=== PATIENT | female | born 1995 | race Two or more races ===

== ENCOUNTER 2017-07-13 16:34 | Inpatient (IN) | payer OTHER ==
[~2017-07-13] VITALS: Ht 154.9 cm; Wt 54.5 kg
[2017-07-13 17:27] LABS: CONTROL LINE HCG INT CTR LINE PRESENT
[2017-07-13 17:42] LABS: ALBUMIN 4.5 GM/DL (3.2-5.2); ALBUMIN/GLOBULIN RATIO 1.41 (1.00-1.93); ALKALINE PHOSPHATASE 68 U/L (45-117); ALT/SGPT 32 U/L (12-78); ANION GAP 10 MEQ/L (8-16); AST/SGOT 19 U/L (15-37); BILIRUBIN,DIRECT 0.2 MG/DL (0.0-0.2); BLOOD UREA NITROGEN 11 MG/DL (7-18); CALCIUM LEVEL 9.8 MG/DL (8.5-10.1); CARBON DIOXIDE LEVEL 26 MEQ/L (21-32); CHLORIDE LEVEL 106 MEQ/L (98-107); CREATININE FOR GFR 0.79 MG/DL (0.55-1.02); GLUCOSE, FASTING 87 MG/DL (70-105); POTASSIUM SERUM 4.6 MEQ/L (3.5-5.1); SODIUM LEVEL 142 MEQ/L (136-145); TOTAL PROTEIN 7.7 GM/DL (6.4-8.2)
[2017-07-13 17:45] LABS: METHADONE URINE NEGATIVE (NEGATIVE)
[2017-07-13 17:54] LABS: MEAN CORPUSCULAR HGB CONC 34.8 g/dl (32.0-36.5); MEAN CORPUSCULAR VOLUME 89.1 fl (80.0-96.0); RED CELL DISTRIBUTION WIDTH 12.2 % (11.5-14.5); WHITE BLOOD COUNT 7.3 K/mm3 (4.0-10.0)
[2017-07-13] MEDS ORDERED: traZODone 50 MG TAB PO PRN (19:00)
[2017-07-13] MEDS ORDERED: ACETAMINOPHEN TAB 650MG DOSE (2X325MG) PO PRN (19:00)
[2017-07-13] MEDS ORDERED: MOM 30ML SUSPENSION UDC PO PRN (19:00)
[2017-07-13] MEDS ORDERED: MAALOX 30 ML SUSP *UDC PO PRN (19:00)
[2017-07-13] MEDS ORDERED: FLUO10CA8 PO (19:37)
[2017-07-13] MEDS ORDERED: MINO50CA3 PO (19:37)
[2017-07-13] MEDS ORDERED: HYDR-643 PO (19:37)
[2017-07-14 06:47] VITALS: BP 105/62
[2017-07-14] MEDS ORDERED: hydrOXYzine 10 MG TAB PO SCH (09:00)
[2017-07-14] MEDS ORDERED: MINOCYCLINE 50 MG CAP PO SCH (09:00)
--- NOTE | 2017-07-14 09:21 | HPEPDOC ---
Medical History and Physical Date of Admission Jul 14, 2017 History and Physical PCP: Dr Holbrook ATTENDING: Dr. Ramón Garner HPI: 22yoF admitted to [facility] for unspecified depressive disorder, being medically examined today. Patient states she has been having some diarrhea over the past few days. She denies abdominal pain currently but states she had some a few days ago. Patient denies nausea, vomiting. Denies history of fevers or chills. Oral intake has been less than usual. Denies any fevers, chills, weakness, fatigue, GARDNER, CP, SOB, cough, palpitations, or changes in bladder habits. PMHx: Anxiety Depression History of self-mutilation Acne PSHX: Denies SOCHX: [facility]ides in: [facility] Marital Status: Single Kids: None Employment: Student Tobacco use: Quit 2 months ago ETOH: Denies Illicit Drugs: Denies IV Drug Use: Denies Tattoos done unprofessionally: Denies FAMHX: Mother: Alive, well Father: Alive, well Siblings: One brother Alive, well Children: None Unexpected deaths due to medical reasons: None. ROS: As noted in HPI, otherwise 11pt ROS of systems reviewed and remarkable only for LMP 07/12/17. PE: GEN: 22 yo F, appears stated age. Well-nourished, well developed. No acute distress. Alert and oriented x 3. Pleasant, interactive. HEENT: Normocephalic, atraumatic. Pupils are equal, round, and reactive to light. Extraocular movements are intact. No nystagmus appreciated. Sclera are nonicteric. Conjunctiva without injection. Nose midline. Nasal turbinates without bogginess. EACs both patent BL. TMs both visualized and browning with good cone of light, no bulging or erythema. No facial asymmetry. Moist mucous membranes. Dentition fair. Pharynx pink and moist, no cobblestoning. Neck supple , trachea midline. No lymphadenopathy or thyromegaly appreciated. CHEST: Regular rate and rhythm, +S1, +S2 LUNGS: Clear to auscultation bilaterally. No wheezes, rales, or rhonchi. Breathing appears symmetric and easy. Patient is speaking in full sentences. No accessory muscle use. ABD: Round, soft, non-tender, non-distended. +Bowel sounds throughout. No rebound or guarding. No costovertebral angle tenderness. EXT: Pulses 2+ bilaterally dorsalis pedis and radial. No lower extremity edema appreciated. SKIN: [place], dry, warm. Capillary refill <2sec. No rashes. Healed scars are noted on the bilateral forearms. NEURO: Alert and oriented x 3. Cranial nerves III-XII are intact. No focal deficits appreciated. EKG: Pending A&P: 22yoF admitted to [facility] for unspecified depressive disorder, 1. Psych. Plan per Psychiatry. Obtain baseline EKG to assure the safety of psychiatric medications as they can prolong the QT interval. 2. Loose stools. Patient currently denies any abdominal pain. Will request UA/ UC. Will request GI panel with recurrent symptoms. Encourage oral intake. Patient is afebrile. CBC/CMP unremarkable. 3. Follow up with PCP on discharge. 4. Staff member Jeanne present throughout exam. Vital Signs Vital Signs Date Time Temp Pulse Resp B/P (MAP) Pulse Ox O2 Delivery O2 Flow Rate FiO2 07/14/17 06:47 97.8 68 18 105/62 (76) Room Air 07/13/17 20:22 100 Laboratory Data Labs 24H Laboratory Tests 2 07/13/17 16:49: Anion Gap 10, Calcium Level 9.8, Aspartate Amino Transf (AST/SGOT) 19, Alanine Aminotransferase (ALT/SGPT) 32, Alkaline Phosphatase 68, Total Bilirubin 1.0, Direct Bilirubin 0.2, Total Protein 7.7, Albumin 4.5, Albumin/Globulin Ratio 1.41, Thyroid Stimulating Hormone (TSH) 0.864, Human Chorionic Gonadotropin, Qual NEGATIVE, Salicylates Level < 1.7L, Urine Amphetamines Screen NEGATIVE, Urine Benzodiazepines Screen NEGATIVE, Urine Opiates Screen NEGATIVE, Urine Methadone Screen NEGATIVE, Acetaminophen Level < 2.0L, Urine Barbiturates Screen NEGATIVE, Urine Phencyclidine Screen NEGATIVE, Urine Cocaine Metabolite Screen NEGATIVE, Urine Cannabinoids Screen NEGATIVE, Ethyl Alcohol Level 0.003 CBC/BMP Laboratory Tests 07/13/17 16:49 Red Blood Count 4.95, Mean Corpuscular Volume 89.1, Mean Corpuscular Hemoglobin 31.0, Mean Corpuscular Hemoglobin Concent 34.8, Red Cell Distribution Width 12.2 Home Medications Scheduled Fluoxetine Hcl (Fluoxetine) 10 Mg Cap, 10 MG PO QHS Hydroxyzine HCl (Hydroxyzine HCl) 10 Mg Tab, 10 MG PO TID Minocycline HCl (Minocycline HCl) 50 Mg Cap, 50 MG PO DAILY Allergies Coded Allergies: Penicillins (Verified Allergy, Intermediate, 07/13/17) Shima Rodriguez Jul 14, 2017 09:21
--- NOTE | 2017-07-14 16:45 | MHDSPDOC ---
[facility] Discharge Summary Discharge Summary DATE OF ADMISSION: Jul 13, 2017 at 18:55 DATE OF DISCHARGE: Jul 14, 2017 at 14:45 DISCHARGE DIAGNOSES: 1. Generalized anxiety disorder REASON FOR ADMISSION: pt began having thoughts of self harm after initiation of fluoxetine for anxiety. given the black box warning for people her age the medication is stopped. She had scratched her nect with a pencil deliberately in response to these thoughts. CONSULTANTS INVOLVED:na TREATMENT AND PROGRESS ON THE UNIT : pt was evaluated for depression. She denies guilt, hopelessness and difficulty sleeping. Even though she sleeps only 4-6 hours she feels rested. She reports good energy but not excess energy. She has things that interest her but is not as involved with Art as she once was. this is not due to lack of interest but mainly due to lack of time. She does use art for relaxation, drawing. She has quit smoking as of 2 months ago and this is a significant change and health benefit. Pt reports purposeful weight loss due to going to the gym regularly and exercising. Her father relies on her for assistance with things around the house that require strength for lifting. No psychomotor changes observed. Pt reports concentration is "fifty-fifty" due to anxiety. She did not meet criteria for depression. Pt was assessed for Anxiety which she endorses fully. She has high expectations of herself and works very hard at school She attends [employer] and has completed 3 semesters. She carries 14 credits. 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 She often has to walk out of class and deep breathe to relax and calm herself then she can return to class. She states her anxiety is so intense she loses focus. this has been happening for a "couple years". There is no apparent trigger. Her heart rate increases, her chest feels tight. If she is having a panic attack she will have these symptoms along with SOB. She struggles with her math requirement and has taken it over now for the third time. She is getting tutoring. She reports if her dad calls her away to help with something she gets irritated as she does not want to be interrupted when studying or doing school work. She will go to the library or stay later at school to get work done so she is not interrupted. Pt states testing on-line is easier for her than in the classroom. She reports "freezing up" when test taking in class and cannot remember things. We discussed requesting a small amount of medicaiton from her doctor for test times. Something like Xanax 0.5 mg or Ativan 0.5 mg may help her test more successfully. Pt lives in [place] with her parents. She says her mother is always busy. She has one older brother who does not have anxiety. She reports her mother does have anxiety but not as bad as her's. Pt sees a school counselor Chanel and receives hydroxyzine prn from her PCP Dr. Holbrook. HOSPITAL COURSE: It was decided that pt did not need to remain on the unit. It appears she was having a rare but not uncommon event related to SSRI for her age group. Stopping the medication is the best decision. Since she does not endorse depressive symptoms it is not felt that she would benefit from an SSRI. We discussed other options to hydroxyzine like BuSpar, clonidine, propranolol but decided since she gets relief from the hydroxyzine and uses it 2-3 times a day as needed without any side effects she should continue on this. BuSpar will take several week to reach a therapeutic level and with her exercising she may tolerate an antihistamine better than an antihypertensive. DISCHARGE ASSESSMENT: Pt can verbalize things she does for stress reduction such as exercising, going for a walk, keeping busy. She has friends and people she feels are supportive of her like her therapist. Pt does not have any serious medical issues. She takes BCP for acne. She does not present with psychotic symptoms. Her mood is not expansive and she does not present as haivng anxiety problems or concentration problems due to bipolar disorder. No family history of this [place]. No family h/o suicide. No thought disorder observed when pt evaluated. Pt states scars on forearms are from her pet dogs and scratches. She denies self inflicted harm. the scratches do appear consist with what small animals can do. She only has one scratch on her neck that she put there yesterday. She does not have a psychiatric history and has never been hospitalized for psychiatric reasons. She has never seen a psychiatrist and gets her hydroxyzine from her PCP. MENTAL STATUS EXAMINATION ON DISCHARGE: Patient is a 22 year old female, who is petite, medium skin, dark hair with green tint, glasses, good eye contact, wearing hospital pj's. Cooperative and Pleasant. Speech is spontaneous, clear. Language skills are intact, good. Thought processes including: goal directed. Thought content: appropriate. Abstract reasoning, and computation: good. Description of associations: good. Description of abnormal or psychotic thoughts: none. she was not suicidal prior to admission, denies ever having suicidal thoughts, no psychotic symptoms illicited. Judgment: good. Insight: good. Orientation to person, place, situation and time are all good. Recent and remote memory: intact. Attention span and concentration: good. Fund of knowledge: Full. Mood: euthymic Affect: anxious MEDICATIONS ON DISCHARGE: pt has hydroxyzine at home per PCP. No script needed at discharge. PLAN/FOLLOWUP ARRANGEMENTS: Pt will follow up with PCP and school counselor. Pt is not suicidal or homicidal. She has anxiety and has good understanding that business and distraction are good things to be aware of in controlling anxiety. She also uses meditation several times a day as needed and deep breathing. She will be discharged as she is not DTS or DTO and she wants to go home. She denies any interpersonal conflicts with parents or friends that are causing her anxiety. Pt has her car at [facility] and will need a cab from [facility] to there. The amount of time spent in the coordination of care for this patient was approximately 45 minutes. Vital Signs/I&Os Vital Signs Date Time Temp Pulse Resp B/P (MAP) Pulse Ox O2 Delivery O2 Flow Rate FiO2 07/14/17 06:47 97.8 68 18 105/62 (76) Room Air 07/13/17 20:22 100 Laboratory Data Labs 24H Laboratory Tests 2 07/13/17 16:49: Anion Gap 10, Calcium Level 9.8, Aspartate Amino Transf (AST/SGOT) 19, Alanine Aminotransferase (ALT/SGPT) 32, Alkaline Phosphatase 68, Total Bilirubin 1.0, Direct Bilirubin 0.2, Total Protein 7.7, Albumin 4.5, Albumin/Globulin Ratio 1.41, Thyroid Stimulating Hormone (TSH) 0.864, Human Chorionic Gonadotropin, Qual NEGATIVE, Salicylates Level < 1.7L, Urine Amphetamines Screen NEGATIVE, Urine Benzodiazepines Screen NEGATIVE, Urine Opiates Screen NEGATIVE, Urine Methadone Screen NEGATIVE, Acetaminophen Level < 2.0L, Urine Barbiturates Screen NEGATIVE, Urine Phencyclidine Screen NEGATIVE, Urine Cocaine Metabolite Screen NEGATIVE, Urine Cannabinoids Screen NEGATIVE, Ethyl Alcohol Level 0.003 CBC/BMP Laboratory Tests 07/13/17 16:49 Red Blood Count 4.95, Mean Corpuscular Volume 89.1, Mean Corpuscular Hemoglobin 31.0, Mean Corpuscular Hemoglobin Concent 34.8, Red Cell Distribution Width 12.2 Medications Scheduled Hydroxyzine HCl (Hydroxyzine HCl) 10 Mg Tab, 10 MG PO TID, (Reported) Minocycline HCl (Minocycline HCl) 50 Mg Cap, 50 MG PO DAILY, (Reported) Allergies Coded Allergies: Penicillins (Verified Allergy, Intermediate, 07/13/17) Mya Pierce Jul 14, 2017 16:45
--- NOTE | 2017-07-14 19:01 | ECGEPIP ---
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
[2017-07-14] MEDS ORDERED: FLUoxetine 10 MG CAP PO SCH (21:00)
== END 2017-07-14 14:45 | disposition home or self-care (01) | DRG 880 ==
LOC: M ED 16:34 → M ED INP 18:55 → M PSY 20:32
PROVIDERS: ADMIT Psychiatry & Neurology Psychiatry; ATTEND Psychiatry & Neurology Child & Adolescent Psychiatry
DX: F41.1 Generalized anxiety disorder (principal); R45.851 Suicidal ideations; Z79.899 Other long term (current) drug therapy; Z88.0 Allergy status to penicillin; Z91.5 Personal history of self-harm; Z87.891 Personal history of nicotine dependence; R19.7 Diarrhea, unspecified

== ENCOUNTER → 2017-11-29 | Outpatient (CLI) | payer OTHER | LOC: M LRY 19:38 | DX: M25.522 Pain in left elbow (principal) | CPT/HCPCS: 73060 ==

== ENCOUNTER 2021-05-09 20:49 | Emergency (ER) | payer OTHER, SELFPAY ==
[~2021-05-09] VITALS: Ht 154.9 cm; Wt 70.7 kg
[~2021-05-09 20:49] MED LIST: FLUO10CA16 PO; HYDR-643 PO; MINO50CA3 PO
[2021-05-09] MEDS ORDERED: HYDR-3363 (21:01)
[2021-05-09] MEDS ORDERED: BUSP10TA (21:01)
[2021-05-09] MEDS ORDERED: PARO30TA4 (21:01)
--- NOTE | 2021-05-09 22:21 | REPVR ---
PROCEDURE INFORMATION: Exam: XR Right Elbow Exam date and time: 05/09/2021 9:02 PM Age: 26 years old Clinical indication: Other: Fall injury TECHNIQUE: Imaging protocol: XR Right elbow. Views: 3 or more views. COMPARISON: CR HUMERUS 2017-11-29 19:43 FINDINGS: Bones/joints: Mild degenerative joint disease. Soft tissues: Normal. IMPRESSION: No acute findings. Electronically signed by: Ramón Tong On 05/09/2021 22:21:01 PM
[2021-05-10 00:23] VITALS: BP 128/74
== END 2021-05-10 00:26 | disposition home or self-care (01) ==
LOC: M ED 20:49
DX: S50.01XA Contusion of right elbow, initial encounter (principal); W22.8XXA Striking against or struck by other objects, initial encounter; Y92.89 Other specified places as the place of occurrence of the external cause; Y93.9 Activity, unspecified; Y99.0 Civilian activity done for income or pay; F32.9 Major depressive disorder, single episode, unspecified; F41.9 Anxiety disorder, unspecified; Z88.0 Allergy status to penicillin

== ENCOUNTER → 2021-09-01 | Outpatient (REF) ==
[~2021-09-01] MED LIST changes: +BUSP10TA; +HYDR-3363; +PARO30TA4
== END ==
LOC: M EMP 08:13
PROVIDERS: ATTEND Family Medicine
DX: Z20.822 Contact with and (suspected) exposure to COVID-19 (principal)

== ENCOUNTER 2021-11-10 22:21 | Emergency (ER) | payer OTHER ==
[~2021-11-10 22:21] MED LIST changes: -FLUO10CA16 PO; +FLUO10CA18 PO
[2021-11-11] MEDS ORDERED: ACETAMINOPHEN TAB 650MG DOSE (2X325MG) PO ONE (00:20)
[2021-11-11 03:57] VITALS: BP 135/67
== END 2021-11-11 04:02 | disposition home or self-care (01) ==
LOC: M ED 22:21
DX: S00.83XA Contusion of other part of head, initial encounter (principal); Y04.0XXA Assault by unarmed brawl or fight, initial encounter; Y92.238 Other place in hospital as the place of occurrence of the external cause; Y93.9 Activity, unspecified; Y99.0 Civilian activity done for income or pay; Z79.899 Other long term (current) drug therapy; Z88.0 Allergy status to penicillin

== ENCOUNTER → 2022-02-18 | Outpatient (REF) | LOC: M LABSMTC 09:30 | PROVIDERS: ATTEND Family Medicine | DX: Z20.822 Contact with and (suspected) exposure to COVID-19 (principal) ==

== ENCOUNTER → 2022-02-21 | Outpatient (REF) | LOC: M LABSMTC 09:20 | PROVIDERS: ATTEND Family Medicine | DX: Z20.822 Contact with and (suspected) exposure to COVID-19 (principal) ==

== ENCOUNTER → 2022-04-01 | Outpatient (REF) | LOC: M LABSMTC 11:13 | PROVIDERS: ATTEND Family Medicine | DX: Z11.52 Encounter for screening for COVID-19 (principal) ==

== ENCOUNTER → 2022-06-20 | Outpatient (CLI) | payer BC, OTHER ==
[2022-06-20 15:31] LABS: BASO % 0.4 % (0.0-1.0); EOS # 0.1 10^3/uL (0.0-0.5); EOS % 1.4 % (0.0-3.0); HEMATOCRIT 41.3 % (36.0-47.0); HEMOGLOBIN 13.7 g/dl (12.0-15.5); LYMPH # 1.8 10^3/uL (1.5-5.0); LYMPH % 24.1 % (24.0-44.0); MEAN CORPUSCULAR HEMOGLOBIN 28.6 pg (27.0-33.0); MEAN CORPUSCULAR HGB CONC 33.2 g/dl (32.0-36.5); MEAN CORPUSCULAR VOLUME 86.2 fl (80.0-96.0); MONO # 0.3 10^3/uL (0.0-0.8); MONO % 4.6 % (2.0-8.0); NEUTROPHILS % 69.2 % (36.0-66.0); PLATELET COUNT, AUTOMATED 259 10^3/uL (150-450); RED BLOOD COUNT 4.79 10^6/uL (4.00-5.40); WHITE BLOOD COUNT 7.3 10^3/uL (4.0-10.0)
[2022-06-20 16:21] LABS: ALBUMIN 3.9 GM/DL (3.2-5.2); ALT/SGPT 35 U/L (12-78); BILIRUBIN,TOTAL 0.4 MG/DL (0.2-1.0); BLOOD UREA NITROGEN 16 MG/DL (7-18); CALCIUM LEVEL 9.3 MG/DL (8.5-10.1); CARBON DIOXIDE LEVEL 27 MEQ/L (21-32); CHLORIDE LEVEL 104 MEQ/L (98-107); CHOLESTEROL LEVEL 153 MG/DL (<200); CHOLESTEROL RISK RATIO 3.825 (<5); CREATININE FOR GFR 0.82 MG/DL (0.55-1.30); FREE T3 2.8 PG/ML (2.2-4.0); FREE T4 0.87 NG/DL (0.76-1.46); GLOMERULAR FILTRATION RATE > 60.0 (>60); GLUCOSE, FASTING 96 MG/DL (70-100); HDL CHOLESTEROL 40 MG/DL (>40); LDL CHOLESTEROL 92 MG/DL (<100); NON-HDL-C 113 MG/DL; POTASSIUM SERUM 4.1 MEQ/L (3.5-5.1); SODIUM LEVEL 137 MEQ/L (136-145); TRIGLYCERIDES LEVEL 105 MG/DL (<150)
== END ==
LOC: M LAB 14:46
PROVIDERS: ATTEND Family Medicine
DX: F41.8 Other specified anxiety disorders (principal); E66.3 Overweight

== ENCOUNTER 2022-07-24 15:09 | Emergency (ER) | payer BC, OTHER ==
[~2022-07-24 15:09] MED LIST changes: -HYDR-3363; +HYDR-3363 PO; -PARO30TA4; +PARO30TA4 PO
[2022-07-24 15:52] LABS: HEMATOCRIT 45.5 % (36.0-47.0); HEMOGLOBIN 14.9 g/dl (12.0-15.5); MEAN CORPUSCULAR HEMOGLOBIN 28.5 pg (27.0-33.0); MEAN CORPUSCULAR HGB CONC 32.7 g/dl (32.0-36.5); PLATELET COUNT, AUTOMATED 283 10^3/uL (150-450); RED BLOOD COUNT 5.23 10^6/uL (4.00-5.40); WHITE BLOOD COUNT 8.8 10^3/uL (4.0-10.0)
[2022-07-24 16:18] LABS: HCG, SERUM QUALITATIVE NEGATIVE (NEGATIVE)
[2022-07-24 16:27] LABS: RSV AMPLIFICATION NEGATIVE (NEGATIVE)
[2022-07-24 16:30] LABS: AMPHETAMINES LEVEL URINE NEGATIVE (NEGATIVE); BARBITURATES URINE NEGATIVE (NEGATIVE); BENZODIAZEPINES URINE NEGATIVE (NEGATIVE); CANNABINOIDS URINE NEGATIVE (NEGATIVE); COCAINE METABOLITE URINE NEGATIVE (NEGATIVE); METHADONE URINE NEGATIVE (NEGATIVE); OPIATES URINE NEGATIVE (NEGATIVE); PHENCYCLIDINE URINE NEGATIVE (NEGATIVE)
[2022-07-24 16:46] LABS: ACETAMINOPHEN LEVEL < 2.0 UG/ML (10.0-30.0); ALBUMIN 4.6 GM/DL (3.2-5.2); ALT/SGPT 48 U/L (12-78); BILIRUBIN,DIRECT < 0.1 MG/DL (0.0-0.2); BILIRUBIN,TOTAL 0.3 MG/DL (0.2-1.0); BLOOD UREA NITROGEN 16 MG/DL (7-18); CALCIUM LEVEL 9.6 MG/DL (8.5-10.1); CARBON DIOXIDE LEVEL 27 MEQ/L (21-32); CHLORIDE LEVEL 101 MEQ/L (98-107); CREATININE FOR GFR 0.86 MG/DL (0.55-1.30); ETHYL ALCOHOL (ETHANOL) 0.004 % (0.000-0.010); GLOMERULAR FILTRATION RATE > 60.0 (>60); GLUCOSE, FASTING 95 MG/DL (70-100); POTASSIUM SERUM 3.9 MEQ/L (3.5-5.1); SALICYLATE LEVEL < 1.7 MG/DL (5.0-30.0); SODIUM LEVEL 136 MEQ/L (136-145); TOTAL PROTEIN 8.3 GM/DL (6.4-8.2)
[2022-07-24] MEDS ORDERED: BUSP15TA47 PO (21:04)
[2022-07-24] MEDS ORDERED: HOME MED LIST COMPLETE! XX SCH (21:05)
[2022-07-25] MEDS: busPIRone 5 MG TAB PO SCH ×3 (02:30→09:04)
[2022-07-25 10:33] VITALS: BP 132/73
== END 2022-07-25 19:55 | disposition home or self-care (01) ==
LOC: M ED 15:09
DX: F32.9 Major depressive disorder, single episode, unspecified (principal); R45.851 Suicidal ideations; Z91.52 Personal history of nonsuicidal self-harm; F17.290 Nicotine dependence, other tobacco product, uncomplicated; Z79.899 Other long term (current) drug therapy; Z88.0 Allergy status to penicillin

== ENCOUNTER 2023-10-02 15:25 | Emergency (ER) | payer OTHER, MEDICAID ==
[~2023-10-02 15:25] MED LIST changes: +BUSP15TA47 PO
[2023-10-02 16:49] VITALS: BP 117/58; TEMP 99.3; O2SAT 100
== END 2023-10-02 16:54 | disposition home or self-care (01) ==
LOC: M ED 15:25
DX: T71.193A Asphyxiation due to mechanical threat to breathing due to other causes, assault, initial encounter (principal); Y04.8XXA Assault by other bodily force, initial encounter; Y92.9 Unspecified place or not applicable; Y93.F9 Activity, other caregiving; Y99.0 Civilian activity done for income or pay; Z79.899 Other long term (current) drug therapy

== ENCOUNTER 2023-11-07 10:59 | Emergency (ER) | payer MEDICAID, OTHER ==
[~2023-11-07] VITALS: Ht 152.4 cm; Wt 69.7 kg
[2023-11-07] MEDS ORDERED: VRAY1.5C PO (11:15)
[2023-11-07] MEDS ORDERED: LORY1TAB2 PO (11:15)
[2023-11-07] MEDS ORDERED: ROSU5TAB5 PO (11:15)
[2023-11-07] MEDS ORDERED: MIRT-10 PO (11:15)
[2023-11-07] MEDS ORDERED: DIVA250T67 PO (11:15)
[2023-11-07] MEDS ORDERED: MED REC IN PROGRESS XX SCH (11:45)
[2023-11-07 11:57] LABS: HEMATOCRIT 38.6 % (36.0-47.0); HEMOGLOBIN 13.5 g/dl (12.0-15.5); MEAN CORPUSCULAR HEMOGLOBIN 29.7 pg (27.0-33.0); PLATELET COUNT, AUTOMATED 228 10^3/uL (150-450); RED BLOOD COUNT 4.54 10^6/uL (4.00-5.40); WHITE BLOOD COUNT 6.1 10^3/uL (4.0-10.0)
[2023-11-07 12:13] LABS: AMPHETAMINES LEVEL URINE NEGATIVE (NEGATIVE); BARBITURATES URINE NEGATIVE (NEGATIVE)
[2023-11-07 12:14] LABS: BENZODIAZEPINES URINE NEGATIVE (NEGATIVE); CANNABINOIDS URINE NEGATIVE (NEGATIVE); COCAINE METABOLITE URINE NEGATIVE (NEGATIVE); METHADONE URINE NEGATIVE (NEGATIVE); OPIATES URINE NEGATIVE (NEGATIVE); PHENCYCLIDINE URINE NEGATIVE (NEGATIVE)
[2023-11-07 12:15] LABS: ETHYL ALCOHOL (ETHANOL) < 0.003 % (0.000-0.010)
[2023-11-07 12:17] LABS: ALBUMIN 3.8 G/DL (3.2-5.2); ALKALINE PHOSPHATASE 50 U/L (46-116); ALT/SGPT 12 U/L (7.0-40); AST/SGOT 9 U/L (<34); BILIRUBIN,DIRECT 0.1 MG/DL (<0.4); BILIRUBIN,TOTAL 0.3 MG/DL (0.3-1.2); BLOOD UREA NITROGEN 12 MG/DL (9-23); CARBON DIOXIDE LEVEL 26 MMOL/L (20-31); CHLORIDE LEVEL 107 MMOL/L (98-107); CREATININE FOR GFR 0.65 MG/DL (0.55-1.30); GLOMERULAR FILTRATION RATE > 60.0 (>60); GLUCOSE, FASTING 119 MG/DL (60-100); SALICYLATE LEVEL < 3.0 MG/DL (<30); SODIUM LEVEL 141 MMOL/L (136-145); TOTAL PROTEIN 7.1 G/DL (5.7-8.2)
[2023-11-07 12:19] LABS: THYROID STIMULATING HORMONE 2.318 uIU/ML (0.55-4.78)
[2023-11-07 12:22] LABS: HCG, SERUM QUALITATIVE NEGATIVE (NEGATIVE)
[2023-11-07] MEDS ORDERED: B-12100010 PO (12:31)
[2023-11-07] MEDS ORDERED: VITA500C24 PO (12:31)
[2023-11-07] MEDS ORDERED: HYDR50TA70 PO (12:31)
[2023-11-07] MEDS ORDERED: HOME MED LIST COMPLETE! XX SCH (12:40)
[2023-11-07 13:25] LABS: VALPROIC ACID (DEPAKOTE) 29.4 UG/ML (50.0-100.0)
[2023-11-07 15:19] VITALS: BP 133/78; TEMP 98.9; O2SAT 100
[2023-11-07] MEDS ORDERED: busPIRone 5 MG TAB PO SCH (16:00)
[2023-11-07] MEDS ORDERED: CARIPRAZINE 1.5MG CAPSULE (VRAYLAR) PO SCH (21:00)
[2023-11-07] MEDS ORDERED: DIVALPROEX 250MG TAB PO SCH (21:00)
[2023-11-07] MEDS ORDERED: MIRTAZAPINE 15 MG TAB PO SCH (21:00)
[2023-11-07] MEDS ORDERED: hydrOXYzine 50 MG TAB PO SCH (21:00)
[2023-11-08] MEDS ORDERED: CYANOCOBALAMIN 500 MCG TAB PO SCH (09:00)
[2023-11-08] MEDS ORDERED: ASCORBIC ACID 250 MG TAB PO SCH (09:00)
[2023-11-08] MEDS ORDERED: ROSUVASTATIN 10 MG TAB (CRESTOR) PO SCH (09:00)
== END 2023-11-07 19:42 | disposition home or self-care (01) ==
LOC: M ED 10:59
DX: Z04.6 Encounter for general psychiatric examination, requested by authority (principal); F32.A Depression, unspecified; F41.9 Anxiety disorder, unspecified; F17.200 Nicotine dependence, unspecified, uncomplicated; Z79.899 Other long term (current) drug therapy; Z88.0 Allergy status to penicillin